=== PATIENT | female | born 1940 | race Caucasian/White ===

== ENCOUNTER 2021-02-21 14:28 | Emergency (ER) | payer OTHER, MEDICAID ==
[~2021-02-21] VITALS: Ht 160 cm; Wt 63.0 kg
[2021-02-21 16:46] LABS: BASOPHILS % 1.2 % (0.0-2.0); EOSINOPHILS % 2.2 % (0.0-5.0); HEMATOCRIT. 39.8 % (36.0-48.0); HEMOGLOBIN. 13.6 g/dL (12.0-16.0); LYMPHOCYTES % 23.3 % (20.0-50.0); MEAN CORPUSCULAR HEMOGLOBIN 31.7 pg (28.0-32.0); MEAN CORPUSCULAR VOLUME 92.5 fL (81.0-99.0); MEAN PLATELET VOLUME 10.3 fl (7.4-10.4); MONOCYTES % 7.6 % (2.0-8.0); NEUTROPHILS % 65.7 % (40.0-76.0); PLATELET 192 x1000/uL (130-400); RED CELL DISTRIBUTION WIDTH 14.4 % (11.6-14.6)
[2021-02-21 16:49] LABS: CLARITY URINE CLEAR (CLEAR); COLOR URINE YELLOW (YELLOW); KETONES URINE NEGATIVE (NEGATIVE); LEUKOCYTE ESTERASE URINE NEGATIVE (NEGATIVE); NITRITE URINE NEGATIVE (NEGATIVE); OCCULT BLOOD URINE NEGATIVE (NEGATIVE); PROTEIN URINE NEGATIVE (NEGATIVE); SPECIFIC GRAVITY URINE 1.006 (1.005-1.030); UROBILINOGEN URINE 0.2 E.U./dL (0.2-1.0)
[2021-02-21 16:50] LABS: CHLORIDE 109 mEq/L (98-107)
[2021-02-21 16:52] LABS: INR 0.9; PROTHROMBIN TIME 9.8 sec (9.6-11.0)
[2021-02-21 18:00] VITALS: BP 170/88
== END 2021-02-21 18:08 | disposition home or self-care (01) ==
LOC: ER 14:28 → EDSEX 14:28 → ER 18:08
DX: M25.562 Pain in left knee (principal); S80.02XA Contusion of left knee, initial encounter; R60.0 Localized edema; I10 Essential (primary) hypertension; M17.12 Unilateral primary osteoarthritis, left knee; M25.462 Effusion, left knee; E78.00 Pure hypercholesterolemia, unspecified; X58.XXXA Exposure to other specified factors, initial encounter; Y93.9 Activity, unspecified; Y92.9 Unspecified place or not applicable; Z88.0 Allergy status to penicillin
CPT/HCPCS: 36415; 73562; 80048; 81003; 85025; 93005; 93970; 99285